=== PATIENT | female | born 1960 | race Caucasian/White ===

== ENCOUNTER 2017-05-05 08:36 | Outpatient (CLI) | payer OTHER ==
[2017-05-05 09:52] LABS: #Basophils 0.1 thou/uL (0.0-0.2); #Eosinphils 0.1 thou/uL (0.0-0.7); #Lymphocytes 1.6 thou/uL (1.20-3.40); #Monocytes 0.4 thou/uL (0.11-0.59); %Basophils 2.1 % (0.0-1.0); %Eosinophils 2.2 % (0.0-10.0); %Lymphocytes 37.7 % (21.0-51.0); %Monocytes 9.6 % (0.0-10.0); Hematocrit 40.7 % (36.0-47.0); Mean Platelet Volume 7.9 fL (7.4-10.4); Red Blood Cell (RBC) Count 4.24 mill/uL (4.20-5.40); White Blood Cell (WBC) Count 4.2 thou/uL (4.8-10.8)
[2017-05-05 10:15] LABS: ALT (SGPT) 13 U/L (8-55); AST (SGOT) 21 U/L (5-34); Alkaline Phosphatase 64 U/L (40-150); Anion Gap 10 mmol/L (10-20); BUN (Urea Nitrogen) 12 mg/dL (9.8-20.1); Bilirubin, Total 0.8 mg/dL (0.2-1.2); Calc. Creatinine Clearance 0 mL/min (70-130); Calcium 9.4 mg/dL (7.8-10.44); Carbon Dioxide 29 mmol/L (22-29); Chloride 104 mmol/L (98-107); Estimated GFR-MDRD 74; Globulin 3.1 g/dL (2.4-3.5); Protein, Total 7.2 g/dL (6.0-8.3)
== END 2017-05-05 08:37 | disposition home or self-care (01) ==
LOC: LABBT 08:36
PROVIDERS: ATTEND Surgery
DX: Z01.818 Encounter for other preprocedural examination (principal); R22.42 Localized swelling, mass and lump, left lower limb
CPT/HCPCS: 80053; 85025; 93005; 93010

== ENCOUNTER 2017-05-18 06:25 | Day surgery (SDC) | payer OTHER ==
[2017-05-05 08:54] VITALS: BMI 21.4
[2017-05-18] MEDS ORDERED: Bupivacaine HCl 0.5%/Epinephrine 1:200,000/PF 30 ml Vial ONE (06:57)
[2017-05-18] MEDS ORDERED: Fentanyl 100 MCG/2 ML VIAL ONE ×2 (07:05→08:45)
[2017-05-18] MEDS ORDERED: Midazolam HCl 2 mg/2 ml Vial ONE ×2 (07:05→07:21)
--- NOTE | 2017-05-18 07:11 | HP ---
CHIEF COMPLAINT: Soft tissue mass, right thigh. HISTORY OF PRESENT ILLNESS: The patient is a 57-year-old female with a several year history of an e nlarging mass distal right inner thigh causing some discomfort, here for excision. PAST MEDICAL HISTORY: History of right leg cysts, hypothyroidism, hysterectomy, reflux. MEDICATIONS: Levothyroxine, Estrace. PAST SURGICAL HISTORY: Laparotomy, bilateral salpingo-oophorectomy, hysterectomy. 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 FAMILY HISTORY: Father of melanoma at 52. Mother is alive with depression. SOCIAL HISTORY: She is , 2 children. No tobacco, no alcohol. ALLERGIES: She has allergies to PREDNISONE and MORPHINE. PHYSICAL EXAMINATION: VITAL SIGNS: Height 65 inches, weight 127, body mass index 21, blood pressure 128/74, pulse 61. GENERAL: Well-developed, well-nourished female in no apparent distress. HEENT: Unremarkable. LUNGS: Clear. HEART: Regular rate and rhythm. ABDOMEN: Soft, nontender, good bowel sounds. BREASTS: She has a 2 cm soft tissue mass, right lower inner thigh consistent with lipoma. ASSESSMENT: Probable lipoma. PLAN: Excisional biopsy. CONSENT: I have discussed the planned procedure as well as risk of bleeding, infection, recurrence. She understands and gives informed consent.
[2017-05-18] MEDS ORDERED: Lidocaine 2% PF 10 ML AMP (For Epidural Use) ONE (07:35)
[2017-05-18] MEDS ORDERED: Propofol 200 MG/20 ML VIAL ONE (07:35)
--- NOTE | 2017-05-18 08:30 | OP ---
PREOPERATIVE DIAGNOSIS: Multilobular lipoma, right thigh. SURGEON: Abraham Dejesus M.D. PROCEDURE PERFORMED: Excisional biopsy. INDICATIONS: A 57-year-old female with a slowly enlarging soft tissue mass of the inner lower right thigh that is causing discomfort. FINDINGS: A multilobular lipoma. DESCRIPTION OF THE PROCEDURE: After informed consent was obtained, the patient was taken to the ope rating room and given general mask anesthesia and placed in a supine position. Her leg was prepped and draped in the usual fashion. Local anesthesia infiltrated subcutaneously and deep. A transvers e incision performed. Subcu divided sharply. The lipoma had a lot of lobules. These were dissecte d out down to its base, which was right onto the muscle, also was very adherent to the saphenous vei n and a branch had to be ligated with 3-0 Vicryl tie and then it was sent to pathology for further a nalysis. Hemostasis was achieved. Subcutaneous reapproximated with interrupted 3-0 Vicryl. Skin c losed with a running subcuticular 4-0 Rapide. Dermabond applied. The patient tolerated the procedu re well and transferred to recovery in good condition. Sponge and needle count verified correct x2.
[2017-05-18] MEDS ORDERED: HYDROcodone/Acetaminophen 5/325 mg Tablet ONE (09:55)
== END 2017-05-18 10:10 | disposition home or self-care (01) ==
LOC: SDC 06:25
PROVIDERS: ATTEND Surgery
PROC: 0JBL3ZX Excision of Right Upper Leg Subcutaneous Tissue and Fascia, Percutaneous Approach, Diagnostic (ICD-10-PCS; principal; 2017-05-18)
DX: D17.23 Benign lipomatous neoplasm of skin and subcutaneous tissue of right leg (principal); E03.9 Hypothyroidism, unspecified; K21.9 Gastro-esophageal reflux disease without esophagitis; Z88.5 Allergy status to narcotic agent; Z79.899 Other long term (current) drug therapy; Z90.710 Acquired absence of both cervix and uterus; Z87.440 Personal history of urinary (tract) infections; Z80.8 Family history of malignant neoplasm of other organs or systems; Z81.8 Family history of other mental and behavioral disorders
CPT/HCPCS: 88304; 96374; J0670; J2001; J2250; J2704; J3010

== ENCOUNTER 2017-09-17 20:35 | Emergency (ER) | payer OTHER ==
[2017-09-17] MEDS ORDERED: Lidocaine 1% PF 5 ML VIAL ONE (20:46)
[2017-09-17] MEDS ORDERED: Lidocaine 1% w/Epinephrine 1:100K 20 ML VIAL ONE (20:51)
== END 2017-09-17 22:15 | disposition home or self-care (01) ==
LOC: SCSER 20:35
DX: S61.212A Laceration without foreign body of right middle finger without damage to nail, initial encounter (principal); S61.210A Laceration without foreign body of right index finger without damage to nail, initial encounter; E03.9 Hypothyroidism, unspecified; W22.8XXA Striking against or struck by other objects, initial encounter
CPT/HCPCS: 12002; J2001

== ENCOUNTER 2021-06-15 10:50 | Outpatient (CLI) | payer BC ==
[2021-06-15 12:18] LABS: #Basophils 0.1 10x3/uL (0.0-0.2); #Eosinphils 0.2 10x3/uL (0.0-0.5); #Monocytes 0.7 10x3/uL (0.0-1.1); #Neutrophils 3.8 10x3/uL (1.5-8.4); %Basophils 1.2 % (0.0-2.0); %Eosinophils 2.8 % (0.0-6.0); %Lymphocytes 26.3 % (18.0-47.0); %Monocytes 10.4 % (0.0-10.0); Hemoglobin 12.2 g/dL (12.0-15.5); Mean Corpuscular HGB CONC 31.9 g/dL (32.0-36.0); Mean Corpuscular Hemoglobin 30.2 pg (27.0-33.0); Mean Corpuscular Volume 94.6 fl (81.6-98.3); Mean Platelet Volume 11.4 fl (7.4-10.4); Platelet Count 236 10x3/uL (150-450); RBC Distribution Width 12.3 % (11.5-14.5); Red Blood Cell (RBC) Count 4.04 10x6/uL (3.90-5.03); White Blood Cell (WBC) Count 6.5 10x3/uL (3.5-10.5)
[2021-06-15 12:30] LABS: Anion Gap 11 mmol/L (10-20); BUN (Urea Nitrogen) 10 mg/dL (9.8-20.1); Calc. Creatinine Clearance 0 mL/min (70-130); Calcium 8.9 mg/dL (7.8-10.44); Carbon Dioxide 28 mmol/L (23-31); Chloride 106 mmol/L (98-107); Glucose 99 mg/dL (80-115); Potassium 4.4 mmol/L (3.5-5.1); Sodium 141 mmol/L (136-145)
[2021-06-15 20:27] LABS: SARS-CoV-2 PCR by NAA Not Detected (NotDetected)
== END 2021-06-15 10:51 | disposition home or self-care (01) ==
LOC: LABBT 10:50
PROVIDERS: ATTEND Specialist
DX: Z01.818 Encounter for other preprocedural examination (principal); C50.911 Malignant neoplasm of unspecified site of right female breast; Z20.822 Contact with and (suspected) exposure to COVID-19
CPT/HCPCS: 80048; 85025; 93005; 93010; U0003; U0005

== ENCOUNTER 2021-06-18 06:50 | Day surgery (SDC) | payer BC ==
[2021-06-17 11:41] VITALS: BMI 20.1
[2021-06-18] MEDS ORDERED: Metoclopramide HCl 10 MG/2 ML VIAL ONE (13:12)
[2021-06-18] MEDS ORDERED: Ketorolac Tromethamine 30 MG/ML VIAL ONE (13:12)
[2021-06-18] MEDS ORDERED: Lidocaine 1% PF 5 ML VIAL ONE (13:12)
[2021-06-18] MEDS ORDERED: Dexamethasone 20 MG/5 ML VIAL ONE (13:12)
[2021-06-18] MEDS ORDERED: PHENYLEPHRINE-NS 100 MCG/ML 10 ML SYRINGE ONE (13:12)
[2021-06-18] MEDS ORDERED: ePHEDrine 50 MG/ML VIAL ONE (13:12)
[2021-06-18] MEDS ORDERED: PROPOFOL 200 MG/20 ML VIAL ONE (13:12)
[2021-06-18] MEDS ORDERED: Ondansetron PF 4 MG/2 ML Vial ONE (13:12)
== END 2021-06-18 16:25 | disposition home or self-care (01) ==
LOC: MAMMO 06:50
PROVIDERS: ATTEND Specialist
PROC: 0HBT0ZZ Excision of Right Breast, Open Approach (ICD-10-PCS; principal; 2021-06-18)
PROC: 07B50ZX Excision of Right Axillary Lymphatic, Open Approach, Diagnostic (ICD-10-PCS; principal; 2021-06-18)
DX: C50.211 Malignant neoplasm of upper-inner quadrant of right female breast (principal); E03.9 Hypothyroidism, unspecified; K21.9 Gastro-esophageal reflux disease without esophagitis; Z17.0 Estrogen receptor positive status [ER+]; Z79.899 Other long term (current) drug therapy; Z88.5 Allergy status to narcotic agent
CPT/HCPCS: 19281; 76098; 78195; 88307; 88341; 88342; A9541; J1100; J1885; J2405; J2704; J2765; J3490

== ENCOUNTER 2022-06-25 13:29 | Outpatient (CLI) | payer BC | END 2022-06-25 13:30 | disposition home or self-care (01) | LOC: BICMAMMO 13:29 | PROVIDERS: ATTEND Specialist | DX: C50.411 Malignant neoplasm of upper-outer quadrant of right female breast (principal); N63.12 Unspecified lump in the right breast, upper inner quadrant; Z98.890 Other specified postprocedural states | CPT/HCPCS: 77066; G0279 ==